=== PATIENT | male | born 1995 | race Caucasian/White ===

== ENCOUNTER 2022-03-29 19:47 | Emergency (ER) | payer OTHER ==
[~2022-03-29 19:47] MED LIST: BENTYL 20MG TAB20 MG PO; COLACE 100MG C100 MG PO; FLAGYL500 MG PO; FLEXERIL 10 MG10 MG PO; IBUPROFEN800 MG PO; LORTAB 7.5-3251 EACH PO; PERCOCET 5-3251 EACH PO; TREXIMET 85-501 EACH PO; TYLENOL 325MG325 MG PO; ZOFRAN4 MG PO
[2022-03-29] MEDS ORDERED: VIBRAMYCIN 100100 MG PO (22:35)
== END 2022-03-29 23:20 | disposition home or self-care (01) ==
LOC: ER1 19:47
DX: N45.1 Epididymitis (principal)
CPT/HCPCS: 76870; 81001; 87086; 96372; 99284; J0696